=== PATIENT | female | born 1985 | race Hispanic/Latino ===

== ENCOUNTER 2016-10-30 21:56 | Emergency (ER) | payer OTHER ==
[~2016-10-30] VITALS: Ht 157.5 cm; Wt 49.4 kg
== END 2016-10-31 00:15 | disposition home or self-care (01) ==
LOC: ED 21:56
DX: R10.33 Periumbilical pain (principal); Z33.1 Pregnant state, incidental
CPT/HCPCS: 81000; 81025; 84702; 99283

== ENCOUNTER 2017-12-26 09:57 | Outpatient (CLI) | payer OTHER | END 2017-12-26 23:22 | disposition home or self-care (01) | LOC: LABW 09:57 | DX: Z20.89 Contact with and (suspected) exposure to other communicable diseases (principal); Z11.3 Encounter for screening for infections with a predominantly sexual mode of transmission; N76.0 Acute vaginitis | CPT/HCPCS: 36415; 80074; 86592; 87535; G0432 ==